=== PATIENT | female | born 1990 | race Hispanic/Latino ===

== ENCOUNTER 2018-10-04 19:40 | Emergency (ER) | payer SELFPAY ==
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
== END 2018-10-04 21:10 | disposition home or self-care (01) ==
LOC: ERS 19:40
DX: M25.511 Pain in right shoulder (principal); V43.92XA Unspecified car occupant injured in collision with other type car in traffic accident, initial encounter

== ENCOUNTER → 2019-08-27 | Day surgery (SDC) | payer OTHER, SELFPAY ==
[~2019-08-27] MED LIST: hydrALAZINE 20 MG/ML VIAL SLOW IVP PRN
[2019-08-27 08:37] VITALS: BMI 33.6
--- NOTE | 2019-08-27 09:29 | PDOC.LDHP ---
Labor and Delivery H&P Chief complaint: other (brown discharge) HPI: 29 y/o at 25w5d, patient of [facility], presents with brown discharge since this morning when she wiped. She has not seen anymore or required a pad. Denies heavy VB, LOF, ctx, or decreased FM. ROS neg for HEENT, cv, pulm, gi, gu, neuro, psych, skin, musculoskeletal or constitutional symptoms other than mentioned above. OB History Details: 1 prior term Current complications: none Past Medical History: None Current medications: pre- vitamins Previous surgical history: none Allergies/Adverse Reactions: Allergies Allergy/AdvReac Type Severity Reaction Status Date / Time No Known Allergies Allergy Unverified 08/27/19 08:32 Social history: none - Physical Exam Vital signs reviewed and normal: yes General: NAD, resting Lungs: nonlabored breathing Abdomen: gravid Extremeties: no edema FHT: category 1 (140s, mod variability, + accels, no decels) [place] contractions every: none - Vaginal Exam cm dilated: 0 (visually closed, scant brown discharge noted) - Assessment 29 y/o at 25w5d with scant brown discharge, no active bleeding noted. VP3 pending. status reassuring with reactive NST. - Plan -: D/c home with precautions. Advised to keep all appointments.
== END ==
LOC: L&D/OP 07:45
PROVIDERS: ATTEND Emergency Medicine
DX: O99.89 Other specified diseases and conditions complicating pregnancy, childbirth and the puerperium (principal); N89.8 Other specified noninflammatory disorders of vagina; Z3A.25 25 weeks gestation of pregnancy
CPT/HCPCS: 87480; 87510; 87660; 99283

== ENCOUNTER 2019-12-01 03:12 | Outpatient (CLI) | payer MEDICAID, OTHER ==
[2019-12-01 18:31] LABS: SARS-CoV-2 MS2 Positive; SARS-CoV-2 N Gene Negative; SARS-CoV-2 S Gene Negative; SARS-CoV-2 orf1ab Negative
== END 2019-12-01 03:13 | disposition home or self-care (01) ==
LOC: ERS 03:12
PROVIDERS: ATTEND Emergency Medicine
DX: Z01.812 Encounter for preprocedural laboratory examination (principal); Z11.59 Encounter for screening for other viral diseases
CPT/HCPCS: 87635; U0003

== ENCOUNTER 2019-12-02 18:00 | Inpatient (IN) | payer MEDICAID, SELFPAY ==
[2019-12-02] MEDS: Lactated Ringer's 1,000 ML IV SCH (19:56)
[2019-12-02 19:57] VITALS: BMI 34.2
[2019-12-02] MEDS ORDERED: Acetaminophen 500 MG TAB PO PRN (20:19)
[2019-12-02] MEDS ORDERED: Misoprostol 200 MCG TAB PR PRN (20:19)
[2019-12-02] MEDS ORDERED: Promethazine HCl 25 MG/ML VIAL IM PRN (20:19)
[2019-12-02] MEDS ORDERED: Methylergonovine 0.2 MG/ML VIAL IM PRN (20:19)
[2019-12-02] MEDS ORDERED: Ondansetron PF 4 MG/2 ML Vial IVP PRN (20:19)
[2019-12-02] MEDS ORDERED: Butorphanol Tartrate 1 MG/ML VIAL SLOW IVP PRN (20:19)
[2019-12-02] MEDS ORDERED: Carboprost 250 MCG/ML AMP IM PRN (20:19)
[2019-12-02] MEDS ORDERED: Lidocaine 1% (PF) 30 ML VIAL SC PRN (20:19)
[2019-12-02] MEDS ORDERED: hydrALAZINE 20 MG/ML VIAL SLOW IVP PRN (20:19)
[2019-12-02] MEDS ORDERED: Dextrose 5% in Water 1,000 ML IV PRN (20:24)
[2019-12-02] MEDS ORDERED: Dextrose 50% Abboject 50 ML SYRINGE SLOW IVP PRN (20:24)
--- NOTE | 2019-12-02 20:26 | PDOC.FPROB ---
FMR OB H&P: HPI - History of Present Illness Chief Complaint: IOL Indentification: 28 yo @ 39.4 wks by LMP c/w 10.5wk History of Present Illness: 29yo F here for IOL 2/2 A1 GDM. Pt reports FM. Denies any ctx, vaginal bleeding or LOF. Denies any urinary sx's. Denies any fever, chills, cough. Denies any chest pain or SOB. Denies any dizziness, lightheadness. Primary Care Physician: REGAN Matta FMR OB H&P: Current - Care : 2 Para: 1 Gestational age: 39.4 wks Due date: 12/05/19 Dating Criteria: LMP c/w 10.5 wk sono Total weight gain: 32lbs - OB Labs Antibody Screen: negative HIV: negative RPR: negative HepBsAg: negative Rubella: immune Quad screen: unknown Urine drug screen: not done Gonorrhea: negative Chlamydia: negative 3 hour GTT: fasting 97, 1hr 211, 2hr 189, 3hr 115 GBS: negative H&H: 11.9/35.5 - First Trimester Ultrasound First trimester: S=D. CARISA c/w LMP - Anatomy Survey Anatomy survey: 20.6 weeks- No anomalies seen FMR OB H&P: History - Past Medical History PMH: None - OB History OB History: 1 prior - [employer] History [employer] History: Reports normal pap smear in 2018 - Surgical History Sx History: None - Social History Social History: Denies any smoking, drinking or illicit drug use. - Family History Family History: Mother- Diabetes FMR OB H&P: Medications - Current Home Medications: Medication Instructions Recorded Confirmed Type Ferrous Sulfate [Iron] 1 mg PO DAILY 08/27/19 12/02/19 History Pnv No.95/Ferrous Fum/Folic AC 1 tablet PO DAILY 08/27/19 12/02/19 History [ Tablet] Allergies/Adverse Reactions: Allergies Allergy/AdvReac Type Severity Reaction Status Date / Time No Known Allergies Allergy Verified 12/02/19 19:51 FMR OB H&P: ROS - Review of Systems General: denies: fever/chills, weight/appetite/sleep changes, night sweats, fatigue Eyes: denies: eye pain, vision changes, double vision ENT: denies: nasal congestion, sinus pain/pressure, pain with swallowing Cardiovascular: denies: chest pain, palpitation, paroxysmal nocturnal dyspnea Respiratory: denies: cough, congestion, shortness of breath Gastrointestinal: denies: abdominal pain, indigestion, bloating, cramping, nausea, vomiting, diarrhea, constipation Genitourinary (Female): denies: incontinence, dysuria, hematuria, polyuria, hesitancy, vaginal discharge, vaginal pain, vaginal bleeding, vaginal mass/sore , contractions, vaginal pressure Musculoskeletal: denies: pain, tenderness, redness Integumentary: denies: itching, rash, lesions Hematologic/Lymphatic: denies: prolonged or excessive bleeding FMR OB H&P: Vital Signs - Maternal Vital signs: Vital Signs - First Documented Temp Pulse Resp BP 98.2 F 78 20 120/73 12/02/19 19:50 12/02/19 19:50 12/02/19 19:50 12/02/19 19:50 - Heart Tones Baseline: 140 Variability: moderate Acceleration: present Deceleration: absent Category: category 1 [place] contractions every: None noted FMR OB H&P: Physical Exam - Physical Exam General: NAD, awake, alert and oriented HEENT: normocephalic and atraumatic, grossly normal vision, grossly normal hearing Neck: supple, FROM, trachea midline Heart: RRR, normal S1/S2, no murmurs/rubs/gallops, pulses present General: CTAB, no respiratory distress, good air movement, no rales/rhonchi, no wheezing, no retractions Abdomen: soft, gravid, non-tender, bowel sound present, no masses, no hernias Musculoskeletal: normal gait and station, pulses present, FROM in all four extremities Neurological: cranial nerves II through XII intact Skin: capillary refill <2 seconds Psychiatric: intact recent and remote memory, normal mood and affect - Pelvic Exam SVE: /-3 FMR OB H&P: A/P - Problem List (1) Current Visit: Yes Status: Acute (2) Gestational diabetes Current Visit: Yes Status: Acute Code(s): O24.419 - GESTATIONAL DIABETES MELLITUS IN , UNSP CONTROL (3) Depressed mood Current Visit: Yes Status: Acute Code(s): R45.89 - OTHER SYMPTOMS AND SIGNS INVOLVING EMOTIONAL STATE Disposition: 29 yo F @ 39.4 wks presents for IOL 2/2 GDMA1 -SVE 2/50/-3. Will induce labor with vag cytotec q3-4 hours. -Pt unsure about epidural at this time. Anesthesia consulted. -Cat 1 strip. FHR 140 GDMA1 -Will check BG q4hrs -Hypoglycemia protocol Depressed Mood reported in -Not on medication. Was reported doing better. -Will want to continue to monitor in post . Discussion: Date/Time: 12/02/192024 This H&P was discussed with [] and [] who agree with the above documentation and plan. Addendum - Attending - Attending Attestation Date/Time: 12/02/192138 I personally evaluated the patient and discussed the management with Dr. Kraus I agree with the History, Examination, Assessment and Plan documented above with any addition or exceptions noted below - 29 yo @ 39.4 weeks with h /o A1GDM here for insuction. Feeling occ ctx, Denies LOF, VB. (+) FM. Afebrile VSS SVE 2/50/-3 FHT- Category 1. Jerome- occ ctx. A/P: 1) IUP@ 39.4 weeks with A1 GDM- Admit to L&D. Will place cytotec for cervical ripening. Recheck in 3-4 hours. Accucheck =88. Monitor q4 hours.
[2019-12-02 21:26] LABS: Hemoglobin 12.3 g/dL (12.0-16.0); Mean Corpuscular HGB CONC 34.1 g/dL (32.0-36.0); Mean Corpuscular Hemoglobin 27.6 pg (27.0-31.0); Mean Platelet Volume 11.8 fL (7.4-10.4); Platelet Count 181 thou/uL (130-400); RBC Distribution Width 18.1 % (11.5-14.5); Red Blood Cell (RBC) Count 4.47 mill/uL (4.20-5.40); White Blood Cell (WBC) Count 6.6 thou/uL (4.8-10.8)
[2019-12-02] MEDS: Misoprostol 100 MCG TAB VAG SCH (21:28)
[2019-12-02 21:55] LABS: Syphilis Antibody Nonreactive (Nonreactive); Syphilis Antibody Index 0.06 S/CO (<1.00 Non-Reactive)
[2019-12-02 22:53] LABS: HBSAg Index 0.24 S/CO (0-0.99); Hep B Surf Ag Non-Reactive S/CO (NonReactive)
--- NOTE | 2019-12-03 03:05 | PDOC.LDPN ---
Labor & Delivery Progress Note - Subjective Subjective: comfortable - Objective Vital signs reviewed and normal: yes General: NAD, resting SVE: 3/50/-2 Dilation: 3 Effacement: 50% Station: -2 FHT: category 1 [place] contractions every: 2-3 minutes - Assessment (1) Gestational diabetes Code(s): O24.419 - GESTATIONAL DIABETES MELLITUS IN , UNSP CONTROL Current Visit: Yes Status: Acute (2) Current Visit: Yes Status: Acute (3) Depressed mood Code(s): R45.89 - OTHER SYMPTOMS AND SIGNS INVOLVING EMOTIONAL STATE Current Visit: Yes Status: Acute Plan: continue plan of care -: 29 yo F @ 39.4 wks presents for IOL 2/2 GDMA1 1. * SVE * 12/01 1900: 250/-3. Will induce labor with vag cytotec q3-4 hours. * 12/02 0044: 350/-2 * Pt unsure about epidural at this time. Anesthesia consulted. * Cat 1 strip. FHR 120 2. GDMA1 Will check BG q4hrs * Hypoglycemia protocol 3. Depressed Mood reported in Not on medication. Was reported doing better. * Will want to continue to monitor in post . Dispo: Will hold off on Cytotec for now. Recheck in 4 hours.
--- NOTE | 2019-12-03 05:21 | PDOC.LDPN ---
Labor & Delivery Progress Note - Subjective Subjective: comfortable - Objective Vital signs reviewed and normal: yes General: NAD Uterine fundus: non tender SVE: /60/-2 Dilation: 4 Effacement: 50% Station: -2 FHT: category 1 [place] contractions every: 2-4 minutes - Assessment (1) Gestational diabetes Code(s): O24.419 - GESTATIONAL DIABETES MELLITUS IN , UNSP CONTROL Current Visit: Yes Status: Acute (2) Current Visit: Yes Status: Acute (3) Depressed mood Code(s): R45.89 - OTHER SYMPTOMS AND SIGNS INVOLVING EMOTIONAL STATE Current Visit: Yes Status: Acute Plan: continue plan of care -: 29 yo F @ 39.4 wks presents for IOL 2/2 GDMA1 1. * SVE * 12/01 1900: 2/50/-3. Will induce labor with vag cytotec q3-4 hours. * 12/02 0044: 3/50/-2 * 12/02 0500: 60/-2, ballotable bag * Pt unsure about epidural at this time. Anesthesia consulted. * Cat 1 strip. FHR 120 2. GDMA1 Will check BG q4hrs * Hypoglycemia protocol 3. Depressed Mood reported in Not on medication. Was reported doing better. * Will want to continue to monitor in post . Dispo: Will hold off on Pitocin since patient is making change consider if no change or contractions space out further. Recheck in 4 hours.
[2019-12-03] MEDS: Lactated Ringer's 1,000 ML IV SCH ×2 (07:26→17:18)
--- NOTE | 2019-12-03 10:46 | PDOC.LDPN ---
Labor & Delivery Progress Note - Subjective Subjective: comfortable, painful contractions - Objective Vital signs reviewed and normal: yes General: NAD, resting, breathing through contractions Uterine fundus: non tender SVE: Dr. Santizo, Dr. Miner Dilation: -2 Station: -2 FHT: category 1 (130 baseline FHT, mod pola, accels present ) [place] contractions every: q3-5 min AROM: clear fluid (@ 0935) Plan: continue plan of care -: 29 yo F @ 39.5 wks presents for IOL 2/2 GDMA1 1. Term sIUP * SVE * 12/01 1900: /-3. Induction of labor with vag cytotec q3-4 hours. * 12/02 0044: /-2 * 12/02 0500: 2, ballotable bag * 12/02 0935: 2, engaged head, membranes intact--> AROM by Dr. Santizo with Dr. Guzman attending. * Pt would like to not receive an epidural, and will let us know if she changes her mind. Anesthesia consulted. * Cat 1 strip. FHR 130, mod variability, acels present. Ctx: 3-5 min. 2. GDMA1 Will check BG q4hrs * Hypoglycemia protocol 3. Depressed Mood reported in Not on medication. Was reported doing better. * Will want to continue to monitor in post . Continue current plan. recheck in 4 hours. Addendum - Attending - Attending Attestation Date/Time: 12/06/19 1820 I personally evaluated the patient and discussed the management with Dr. Santizo on 12/03/19 I agree with the History, Examination, Assessment and Plan documented above with any addition or exceptions noted below.
--- NOTE | 2019-12-03 12:16 | PDOC.LDPN ---
Labor & Delivery Progress Note - Subjective Subjective: comfortable - Objective Vital signs reviewed and normal: yes General: NAD SVE: /-2 @ [address] Miner FHT: category 1 (baseline 135/mod pola/+accel/-decels), variability present Plan: continue plan of care -: 29 yo F @ 39.5 wks presents for IOL 2/2 GDMA1 1. Term sIUP * SVE * 12/01 1900: /-3. Induction of labor with vag cytotec q3-4 hours. * 12/02 0044: /-2 * 12/02 0500: /-2 * 12/02 0935: -2, engaged head, membranes intact--> AROM by Dr. Santizo with Dr. Guzman attending. * 12/02 1210: 2 * Pt would like to not receive an epidural, and will let us know if she changes her mind. Anesthesia consulted. 2. GDMA1 Will check BG q4hrs * Hypoglycemia protocol 3. Depressed Mood reported in Not on medication. Was reported doing better. * Will want to continue to monitor in post . Continue expectant management recheck in 2 hours.
--- NOTE | 2019-12-03 14:22 | PDOC.LDPN ---
Labor & Delivery Progress Note - Subjective Subjective: comfortable - Objective Vital signs reviewed and normal: yes General: NAD SVE: 2 @ [address] Miner FHT: category 1, variability present Plan: continue plan of care -: 29 yo F @ 39.5 wks presents for IOL 2/2 GDMA1 1. Term sIUP * SVE * 12/01 1900: /-3 Induction of labor with vag cytotec q3-4 hours. * 12/02 0044: -2 * 12/02 0500: 2 * 12/02 0935: 2, engaged head, membranes intact--> AROM by Dr. Santizo with Dr. Guzman attending. * 12/02 1210: 2 * 12/02 1415: * Pt would like to not receive an epidural, and will let us know if she changes her mind. Anesthesia consulted. 2. GDMA1 Will check BG q4hrs * Hypoglycemia protocol 3. Depressed Mood reported in Not on medication. Was reported doing better. * Will want to continue to monitor in post . Continue expectant management recheck in 2 hours.
--- NOTE | 2019-12-03 16:54 | PDOC.LDPN ---
Labor & Delivery Progress Note - Subjective Subjective: comfortable - Objective Vital signs reviewed and normal: yes General: NAD, breathing through contractions Uterine fundus: palpable contractions SVE: /-1 @ 1615 by nurse Alis FHT: category 1, variability present [place] contractions every: 2-5 min Plan: continue plan of care -: 29 yo F @ 39.5 wks presents for IOL 2/2 GDMA1 1. Term sIUP * SVE * 12/01 1900: /-3 Induction of labor with vag cytotec q3-4 hours. * 12/02 0044: /-2 * 12/02 0500: /-2 * 12/02 0935: /-2, engaged head, membranes intact--> AROM by Dr. Santizo with Dr. Guzman attending. * 12/02 1210: /-2 * 12/02 1415: /-2 * 12/02 1615: 1 * Pt would like to not receive an epidural, and will let us know if she changes her mind. Anesthesia consulted. 2. GDMA1 Will check BG q4hrs * Hypoglycemia protocol 3. Depressed Mood reported in Not on medication. Was reported doing better. * Will want to continue to monitor in post . Continue expectant management recheck in 2 hours.
--- NOTE | 2019-12-03 18:23 | PDOC.LDPN ---
Labor & Delivery Progress Note - Subjective Subjective: comfortable - Objective Vital signs reviewed and normal: yes General: breathing through contractions SVE: /0 Dilation: 8 Effacement: 75% Station: 0 FHT: category 1 [place] contractions every: 6-7 minutes - Assessment (1) Gestational diabetes Code(s): O24.419 - GESTATIONAL DIABETES MELLITUS IN , UNSP CONTROL Current Visit: Yes Status: Acute (2) Current Visit: Yes Status: Acute (3) Depressed mood Code(s): R45.89 - OTHER SYMPTOMS AND SIGNS INVOLVING EMOTIONAL STATE Current Visit: Yes Status: Acute Plan: continue plan of care -: 29 yo F @ 39.5 wks presents for IOL 2/2 GDMA1 1. Term sIUP * SVE * 12/01 1900: 250/-3 Induction of labor with vag cytotec q3-4 hours. * 12/02 0044: 50/-2 * 12/02 0500: 60/-2 * 12/02 0935: /-2, engaged head, membranes intact--> AROM by Dr. Santizo with Dr. Guzman attending. * 12/02 1210: 75/-2 * 12/02 1415: /-2 * 12/02 1615: /-1 * 12/02 1815: /0 * Pt would like to not receive an epidural, and will let us know if she changes her mind. Anesthesia consulted. 2. GDMA1 Will check BG q4hrs * Hypoglycemia protocol 3. Depressed Mood reported in Not on medication. Was reported doing better. * Will want to continue to monitor in post . Continue expectant management.
--- NOTE | 2019-12-03 19:50 | PDOC.LDPN ---
Labor & Delivery Progress Note - Subjective Subjective: comfortable, painful contractions - Objective Vital signs reviewed and normal: yes General: NAD, breathing through contractions Uterine fundus: non tender Dilation: 8 Effacement: 75% Station: 0 FHT: category 1 (BL 140), early decelerations, variability present [place] contractions every: 4 Resuscitative measures: maternal IV fluids, maternal position change Plan: continue plan of care -: - Cervical check unchanged from prior - cont plan of care - recheck q2hrs pending clinical course
[2019-12-03] MEDS: NS / Oxytocin 40 units/1000ml 1,000 ML IV PRN ×2 (21:55→23:23)
[2019-12-03] MEDS ORDERED: Bisacodyl 10 MG SUPP PR PRN (22:19)
[2019-12-03] MEDS ORDERED: Milk Of Magnesia 30 ML UDCUP PO PRN (22:19)
[2019-12-03] MEDS ORDERED: diphenhydrAMINE 25 MG CAP PO PRN (22:19)
[2019-12-03] MEDS ORDERED: Lanolin Ointment 7 GM TUBE TOP PRN (22:19)
[2019-12-03] MEDS ORDERED: Benzocaine-Menthol 82.5 ML CAN TOP PRN (22:19)
[2019-12-03] MEDS: Misoprostol 100 MCG TAB VAG SCH ×2 (22:27→22:28)
[2019-12-03] MEDS ORDERED: Ibuprofen 800 MG TAB PO SCH (22:45)
--- NOTE | 2019-12-04 01:45 | PDOC.OPDEL ---
OB Operative/Delivery Note Delivery Dr/Surgeon: Chris Gavin/Myra Pre-Delivery Diagnosis: medically indicated induction Procedure/Post Delivery Dx: spontaneous vaginal delivery Weeks gestation: 39 Anesthesia: none - Findings A Sex: female Weight: 4060 kg - 1 min: 8 - 5 min: 9 - Additional Findings/Plan Placenta delivered: spontaneous Repaired Obstetrical Laceration: 1st degree (perineal with small periurethral) Estimated blood loss: 624 Compilations/Other Findings: Delivering Physician: Chris Gavin Attending: Myra Procedure: Spontaneous Vaginal Delivery Anesthesia: None QBL: 624 ml Pre-op Diagnosis: 1. Term intrauterine in labor 2. A1GDM 3. Anemia of Post-op Diagnosis: 1. Term intrauterine , delivered 2. A1GDM 3. Anemia of 4. Mild Shoulder Dystocia resolved with McRobert's 5. 1st degree perineal and small right periurtheral Indications: A 29y/o female presents to L&D for induction due to GDM. Delivery Note: This is 29 yo F @ 39.5 wks who delivered a viable F at 2154 on 12/02. After a mild shoulder dystocia resolved with McRobert's, a vigorous F was delivered over an intact perineum in the occipitoanterior position. Anterior Shoulder and then remainder of the body delivered. No nuchal cord. The head was held down and mouth and nares were bulb suctioned. Cord was clamped after delayed cord clamping and cut and cord blood collected. Placenta delivered intact in the [place] presentation with a 3 vessel cord noted. Fundal massage was performed and the fundus was firm, but bleeding was present so 800 mg of Cytotec was placed CO. The cervix and vagina were inspected and found to have a 1st degree perineal and small right periurtheral lacerations that were found to be hemostatic and did not need suturing.Infant went to nursery in good condition for routine care. Apgars were 8/9 at 1 & 5 minutes, respectively. Patient tolerated delivery well and went to after routine recovery/care. Post delivery plan: routine recovery Addendum - Attending - Attending Attestation Date/Time: 12/04/19 0724 I was present and supervised the of a viable female on 12/03/2019 to a 29 yo @ 39.4 weeks. Apgars 8/9. Mild shoulder dystocia relieved with [place]. Placenta delivered spontaneously and intact. 3V cord. Mild uterine atony resolved with bimanual massage and cytotec. 1* perineal lac and right periurethral abrasion hemostatic. QBL 624 mL. and mother in stable condition. Residents: Chris Boyle/[place].
[2019-12-04] MEDS: Misoprostol 100 MCG TAB VAG SCH ×2 (02:25→02:29)
[2019-12-04] MEDS: Ibuprofen 800 MG TAB PO SCH ×3 (06:23→22:36)
[2019-12-04 06:34] LABS: Hemoglobin 10.8 g/dL (12.0-16.0); Mean Corpuscular HGB CONC 34.4 g/dL (32.0-36.0); Mean Corpuscular Volume 81.4 fL (78.0-98.0); Mean Platelet Volume 11.3 fL (7.4-10.4); Platelet Count 156 thou/uL (130-400); RBC Distribution Width 17.8 % (11.5-14.5); Red Blood Cell (RBC) Count 3.86 mill/uL (4.20-5.40); White Blood Cell (WBC) Count 10.6 thou/uL (4.8-10.8)
[2019-12-04] MEDS: Ferrous Sulfate 325 MG TAB PO SCH ×2 (07:05→18:33)
[2019-12-04] MEDS ORDERED: Adacel (T-DAP) 0.5 ML SYRINGE IM ONE (09:00)
[2019-12-04] MEDS: Docusate Calcium (SURFAK) 240 MG CAP PO SCH ×2 (09:26→22:35)
[2019-12-04] MEDS: Prenatal Vitamin 1 TAB PO SCH (09:26)
[2019-12-04] MEDS: Lactated Ringer's 1,000 ML IV SCH (13:44)
--- NOTE | 2019-12-05 02:32 | PDOC.PP ---
Post Progress Note Post Day #: 1 Subjective: Pt reports doing well. Reports some abdominal cramping pain. Reports pain medication helping. Denies any fever or chills. Denies any chest pain or SOB. Reports going well. Reports lochia about the same as period. Denies any heavy bleeding. Pt tolerating PO. passing gas. PO intake tolerated: yes Flatus: yes Ambulation: yes Vital Signs (12 hours) Temp Pulse Resp BP Pulse Ox 12/04/19 20:10 98.4 F 78 16 104/64 95 12/04/19 15:23 98.0 F 86 16 117/60 Weight Weight 93.44 kg - Physical Examination General: NAD Cardiovascular: no m/r/g, RRR Respiratory: clear to auscultation bilaterally, non-labored breathing Abdominal: + bowel sounds, lochia, no distention, appropriately TTP Fundus firm & at: umbilicus Extremities: negative homans (B) Neurological: no gross focal deficits Psychiatric: A&Ox3, normal affect Result Diagrams: 12/04/19 06:23 Additional Labs: Post Labs Blood Type O POSITIVE 12/02/19 21:36 Hep Bs Antigen Non-Reactive S/CO (NonReactive) 12/02/19 21:05 (1) Status: Acute (2) Gestational diabetes Code(s): O24.419 - GESTATIONAL DIABETES MELLITUS IN , UNSP CONTROL Status: Acute (3) Depressed mood Code(s): R45.89 - OTHER SYMPTOMS AND SIGNS INVOLVING EMOTIONAL STATE Status: Acute - Assessment/Plan 29 yo F @ 39.5 wks delivered MARY Bañuelos born via on [birth year] @ 21:45. Had 1st degree hemostatic lac -Had mild shoulder dystocia delivered w/ Ricardo maneuvar -Routine Post care -VSS -Pain well controlled GDMA1 -Will check BG ACHS. check A1c post -Hypoglycemia protocol Depressed Mood reported in -Not on medication. Was reported doing better. -Will want to continue to monitor in post . Addendum - Attending - Attending Attestation Date/Time: 12/05/19 9636 I personally evaluated the patient and discussed the management with Dr. Kraus. I agree with the History, Examination, Assessment and Plan documented above with any addition or exceptions noted below. Stable for d/c home.
[2019-12-05] MEDS: Ibuprofen 800 MG TAB PO SCH (05:51)
--- NOTE | 2019-12-05 06:24 | PDOC.PP ---
Post Progress Note Post Day #: 2 Subjective: Pt doign well. bonding well with baby, reports good moods and denies depressive thoughts currently. Pain is decreased today, feeling hungry. Had small soft BM. Breast feeding going well, colostrum still, and supplementing formula. PO intake tolerated: yes Flatus: yes Ambulation: yes Vital Signs (12 hours) Temp Pulse Resp BP Pulse Ox 12/04/19 20:10 98.4 F 78 16 104/64 95 Weight Weight 93.44 kg - Physical Examination General: NAD Cardiovascular: no m/r/g, RRR Respiratory: clear to auscultation bilaterally, non-labored breathing Abdominal: + bowel sounds, lochia, no distention, appropriately TTP Extremities: negative homans (B) Skin: no rash Neurological: no gross focal deficits Psychiatric: A&Ox3, normal affect Result Diagrams: 12/04/19 06:23 Additional Labs: Post Labs Blood Type O POSITIVE 12/02/19 21:36 Hep Bs Antigen Non-Reactive S/CO (NonReactive) 12/02/19 21:05 (1) (spontaneous vaginal delivery) Code(s): O80 - ENCOUNTER FOR FULL-TERM UNCOMPLICATED DELIVERY Status: Acute (2) Gestational diabetes Code(s): O24.419 - GESTATIONAL DIABETES MELLITUS IN , UNSP CONTROL Status: Acute - Assessment/Plan 29 yo F @ 39.5 wks delivered TAGA F born via on [birth year]/03/[birth year] @ 21:45. Had 1st degree hemostatic lac -Had mild shoulder dystocia delivered w/ Ricardo fengvar -Routine Post care -VSS -Pain well controlled GDMA1 -Will check BG ACHS. check A1c post -Hypoglycemia protocol Depressed Mood reported in -Not on medication. Was reported doing better. -Will want to continue to monitor in post . dispo: stable, plan to dc home today Addendum - Attending - Attending Attestation Date/Time: 12/05/19 5614 I personally evaluated the patient and discussed the management with Dr. Santizo on 12/05/19. I agree with the History, Examination, Assessment and Plan documented above with any addition or exceptions noted below. Stable for d/c home.
[2019-12-05] MEDS: Ferrous Sulfate 325 MG TAB PO SCH (07:05)
[2019-12-05 07:34] VITALS: BP 120/82; TEMP 97.9
[2019-12-05] MEDS: Docusate Calcium (SURFAK) 240 MG CAP PO SCH (08:29)
[2019-12-05] MEDS: Prenatal Vitamin 1 TAB PO SCH (08:29)
== END 2019-12-05 11:10 | disposition home or self-care (01) | DRG 807 ==
LOC: L&D 18:17 → 3SE 12-04 02:00
PROVIDERS: ADMIT Family Medicine; ATTEND Family Medicine
PROC: 10E0XZZ Delivery of Products of Conception, External Approach (ICD-10-PCS; principal; 2019-12-02)
PROC: 0HQ9XZZ Repair Perineum Skin, External Approach (ICD-10-PCS; 2019-12-02)
DX: O99.344 Other mental disorders complicating childbirth (principal); Z37.0 Single live birth; O70.0 First degree perineal laceration during delivery; O24.420 Gestational diabetes mellitus in childbirth, diet controlled; O99.02 Anemia complicating childbirth; D64.9 Anemia, unspecified; F32.9 Major depressive disorder, single episode, unspecified; Z3A.39 39 weeks gestation of pregnancy; O66.0 Obstructed labor due to shoulder dystocia
CPT/HCPCS: 36415; 36416; 85027; 86780; 86850; 86900; 86901; 87340; J0595

== ENCOUNTER 2021-12-24 22:49 | Emergency (ER) | payer OTHER, SELFPAY | END 2021-12-24 23:26 | disposition home or self-care (01) | LOC: ERS 22:49 | DX: U07.1 COVID-19 (principal) | CPT/HCPCS: 99283; U0003; U0005 ==